=== PATIENT | male | born 1955 | race Caucasian/White ===

== ENCOUNTER 2018-08-12 15:37 | Outpatient (CLI) | payer BC ==
--- NOTE | 2018-08-12 16:48 | RAD ---
RADIOGRAPH CHEST 2 VIEWS: HISTORY: A 63-year-old male with cough and dyspnea with chest congestion. FINDINGS: The thoracic aorta is tortuous and ectatic. There is no evidence of air space density, pneumothorax, or pulmonary edema. There is no cardiomegaly or pleural effusion. IMPRESSION: 1) No acute cardiopulmonary findings. 2) Ectasia of thoracic aorta. jn [] POS: [facility]
== END 2018-08-12 15:38 | disposition home or self-care (01) ==
LOC: SCSRAD 15:37
PROVIDERS: ATTEND Family Medicine
DX: R05 Cough (principal); I77.810 Thoracic aortic ectasia
CPT/HCPCS: 71046

== ENCOUNTER 2018-08-27 07:15 | Outpatient (CLI) | payer BC, OTHER ==
--- NOTE | 2018-08-27 09:33 | CT ---
CT ANGIOGRAM THORAX WITH IV CONTRAST AND 3D RECONSTRUCTIONS: CT ANGIOGRAM ABDOMEN WITH IV CONTRAST AND 3D RECONSTRUCTIONS: 08/27/2018 HISTORY: Ectasia of the thoracic aorta. Abnormal chest x-ray. COMPARISON: 11/04/2011 FINDINGS: THORAX: The ascending thoracic aorta measures 4.5 cm in greatest transverse dimensions, which is bor derline aneurysmally dilated, but this is stable when compared to the study in 2011. The descending thoracic aorta is normal in caliber. There is no evidence of an aortic dissection. Vascular calcifi cations are seen at the origins of the great vessels. 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 No filling defects are seen within the pulmonary arteries to suggest a pulmonary embolus. A subpleural right middle lobe pulmonary nodule, measuring 7 mm, is seen anteriorly. A few subcentim eter, tiny, less than 4 mm pulmonary nodules are seen at the right lung base, which are also pleural- based. No additional pulmonary nodule is seen. There is no consolidation or pleural fluid seen. There is no evidence of lymphadenopathy. Vascular calcifications are seen in the coronary arteries. ABDOMEN: The liver demonstrates diminished attenuation, suggesting diffuse fatty infiltration. Area s of fatty sparing are seen adjacent to the gallbladder. A nonobstructing inferior pole left renal calculus is present, measuring 7 mm. A subcentimeter, too- [id number], hypodense lesion is seen in the mid portion of the left kidney. The spleen, pancreas, bilateral adrenal glands, and right kidney demonstrate a normal CT appearance f or the arterial phase of imaging. There are scattered atherosclerotic calcifications seen within the abdominal aorta and iliac arteries , which are otherwise normal in caliber, without evidence of an aortic dissection. There is eccentri c atherosclerotic plaque seen within the proximal superior mesenteric artery, resulting in mild narro wing proximally. The celiac and inferior mesenteric arteries, as well as the single bilateral renal arteries are patent. The appendix is visualized and is normal in caliber. No free fluid, fluid collection, or lymphadenopathy is seen in the abdomen. Degenerative changes are noted in the spine. IMPRESSION: 1. Right middle lobe pulmonary nodule, measuring 7 mm, with subcentimeter pleural-based nodular dens ities at the right lung base. There is a questionable pulmonary nodule at the lateral aspect of the right middle lobe, laterally, likely related to an additional pulmonary nodule. Follow-up CT scan th orax is recommended in six months. 2. Ectasia to mild aneurysmal dilatation of the ascending thoracic aorta, which is stable in size co mpared to the study in 2012. The descending thoracic aorta is normal in caliber. 3. Mild atherosclerotic vascular calcifications in the thoracic and abdominal aorta. 4. The abdominal aorta is normal in caliber without evidence of an aortic dissection. 5. Mild narrowing of the proximal superior mesenteric artery, related to eccentric atherosclerotic p laque. 6. Nonobstructing left renal calculus with subcentimeter, [id number], hypodense lesio n in the left kidney. 7. Fatty infiltration of the liver. POS: [facility]
[2018-08-27] MEDS ORDERED: ISOVUE-370 76%-LOCM 1 ML ONE (11:24)
== END 2018-08-27 07:16 | disposition home or self-care (01) ==
LOC: BICCT 07:15
PROVIDERS: ATTEND Family Medicine
DX: Z13.6 Encounter for screening for cardiovascular disorders (principal); I77.810 Thoracic aortic ectasia; R91.1 Solitary pulmonary nodule; I70.0 Atherosclerosis of aorta; K55.1 Chronic vascular disorders of intestine; N20.0 Calculus of kidney; K76.0 Fatty (change of) liver, not elsewhere classified
CPT/HCPCS: 71275; 74175; 82565; Q9966

== ENCOUNTER 2019-01-27 11:07 | Outpatient (CLI) | payer BC, OTHER ==
--- NOTE | 2019-01-27 11:21 | RAD ---
XR Toe(s) Lt Min 2 View HISTORY: Great toe pain suspicion of gout. COMPARISON: None. FINDINGS: There are arthritic changes of the great toe. There is chronic appearing changes of the fir st metatarsal phalangeal joint cortical margins are indistinct with subchondral cystic change involving the base of the proximal phalanx. These changes could be on the basis of gout. IMPRESSION: Arthritic changes of the great toe, the changes at the first metatarsophalangeal joint co uld be on the basis of gout.
== END 2019-01-27 11:08 | disposition home or self-care (01) ==
LOC: SCSRAD 11:07
PROVIDERS: ATTEND Family Medicine
DX: M10.072 Idiopathic gout, left ankle and foot (principal); M19.072 Primary osteoarthritis, left ankle and foot

== ENCOUNTER 2019-08-25 15:56 | Outpatient (CLI) | payer BC, OTHER ==
--- NOTE | 2019-08-25 16:23 | RAD ---
Exam: XR Knee Lt 3 View HISTORY: Acute pain left knee. Patient states chronic left knee pain but recently developed acute pain posteri or aspect left knee. COMPARISON: None FINDINGS: There are osteophytes involving the medial joint compartment and to a lesser extent involving patello femoral joint. There is suggestion of minimal narrowing of the medial joint compartment. No fracture or dislocation is seen involving the left knee. Vascular calcifications are seen posterior t o the knee. IMPRESSION: Osteoarthritis left knee without evidence of an acute osseous abnormality.
== END 2019-08-25 15:57 | disposition home or self-care (01) ==
LOC: SCSRAD 15:56
PROVIDERS: ATTEND Family Medicine
DX: M25.562 Pain in left knee (principal); M17.12 Unilateral primary osteoarthritis, left knee

== ENCOUNTER 2020-05-30 15:58 | Outpatient (CLI) | payer BC, OTHER ==
--- NOTE | 2020-05-30 16:46 | CT ---
CT ABDOMEN AND PELVIS WITHOUT IV CONTRAST: Indications: Hematuria. Right side pain. Comparison: 11-04-11 FINDINGS: Lung bases clear. Liver, spleen, and pancreas unremarkable. Stomach and duodenum unremarkable. Adrenal glands normal. Review of kidneys shows no evidence of hydronephrosis. Ureters are normal caliber and there is no carli dence of ureteral calculus or obstruction. Calcification in the lower pole left kidney may be arterial in nature. Similar calcification in the m id pole may be arterial. Also, small calcification in the midpole right kidney is probably arterial. Urinary bladder is contracted and not well evaluated. Small bowel loops normal caliber. Colon unremarkable. Appendix appears normal. Left colon is nondiste nded and not adequately evaluated. Aorta shows mild atherosclerotic calcification. No adenopathy or free fluid. Prostate upper normal size. Osseous structures unremarkable. There is a small calcification seen in what appears to be the cystic duct. There is no evidence of ga llbladder distention or ductal dilatation. A cystic duct stone is suspected. IMPRESSION: 1. Evidence of a small cystic duct calculus. 2. No evidence of urinary obstruction or ureteral calculus. Calcifications in the upper collecting st ructures of both kidneys are probably arterial in nature. POS: [facility]
== END 2020-05-30 15:59 | disposition home or self-care (01) ==
LOC: BICCT 15:58
PROVIDERS: ATTEND Family Medicine
DX: R31.0 Gross hematuria (principal); K80.20 Calculus of gallbladder without cholecystitis without obstruction; N28.89 Other specified disorders of kidney and ureter
CPT/HCPCS: 74176

== ENCOUNTER 2020-06-13 09:36 | Outpatient (CLI) | payer BC, OTHER ==
[2020-06-13] MEDS ORDERED: Iopamidol-370 76% 500 ML 1 ML ONE (10:09)
--- NOTE | 2020-06-13 12:00 | CT ---
CT CHEST WITH IV CONTRAST: Date: 06/13/2200 PROVIDED CLINICAL HISTORY: Pulmonary nodules. FINDINGS: Comparison made with study dated 08/27/2018. Aneurysmal dilatation of the ascending thoracic aorta measuring 4.5 cm is redemonstrated. Vascular ca lcification including coronary calcium is noted. There is an aberrant origin of the right subclavian origin demonstrating a retroesophageal course. There is no evidence for thoracic lymph node enlargement. The airway appears patent and of normal caliber. There is a stable 5.0 mm average axial dimension right middle lobe noncalcified pulmonary nodule. The lungs appear otherwise clear. Fatty infiltration of the liver is demonstrated. The osseous structures demonstrate no concerning lytic or blastic lesions. IMPRESSION: 1. Stable 5.0 mm average axial dimension pulmonary nodule. Given its stability [facility] [place], this is compatible with a benign nodule. 2. Vascular calcification including coronary calcium. 3. Fatty infiltration of the liver. POS: [facility]
== END 2020-06-13 09:37 | disposition home or self-care (01) ==
LOC: BICCT 09:36
PROVIDERS: ATTEND Family Medicine
DX: R91.1 Solitary pulmonary nodule (principal); I70.90 Unspecified atherosclerosis; K76.0 Fatty (change of) liver, not elsewhere classified
CPT/HCPCS: 71260; 82565; Q9967

== ENCOUNTER 2020-12-09 17:30 | Emergency (ER) | payer OTHER, BC ==
[2020-12-09] MEDS ORDERED: Boostrix 0.5 ML (Tdap) VIAL ONE (17:37)
[2020-12-09 18:01] LABS: #Basophils 0.1 thou/uL (0.0-0.2); #Eosinphils 0.1 thou/uL (0.0-0.7); #Monocytes 1.4 thou/uL (0.11-0.59); #Neutrophils 11.7 thou/uL (1.40-6.50); %Basophils 0.6 % (0.0-1.0); %Eosinophils 0.9 % (0.0-10.0); %Lymphocytes 12.9 % (21.0-51.0); %Monocytes 9.2 % (0.0-10.0); %Neutrophils 76.5 % (42.0-75.0); Hemoglobin 14.9 g/dL (14.0-18.0); Mean Corpuscular HGB CONC 32.6 g/dL (32.0-36.0); Mean Platelet Volume 8.8 fL (7.4-10.4); Platelet Count 191 thou/uL (130-400); Red Blood Cell (RBC) Count 4.65 mill/uL (4.70-6.10); White Blood Cell (WBC) Count 15.3 thou/uL (4.8-10.8)
[2020-12-09 18:38] LABS: ALT (SGPT) 67 U/L (8-55); AST (SGOT) 89 U/L (5-34); Albumin 3.7 g/dL (3.4-4.8); Alcohol 33 mg/dL (Less than 10); Alkaline Phosphatase 56 U/L (40-110); Anion Gap 15 mmol/L (10-20); BUN (Urea Nitrogen) 24 mg/dL (8.4-25.7); Bilirubin, Total 0.4 mg/dL (0.2-1.2); Calc. Creatinine Clearance 0 mL/min (70-130); Carbon Dioxide 20 mmol/L (23-31); Chloride 107 mmol/L (98-107); Globulin 3.5 g/dL (2.4-3.5); Glucose 133 mg/dL (80-115); Protein, Total 7.2 g/dL (5.8-8.1); Sodium 138 mmol/L (136-145)
== END 2020-12-09 20:58 | disposition home or self-care (01) ==
LOC: ERS 17:30
DX: S42.111A Displaced fracture of body of scapula, right shoulder, initial encounter for closed fracture (principal); S92.512A Displaced fracture of proximal phalanx of left lesser toe(s), initial encounter for closed fracture; S00.03XA Contusion of scalp, initial encounter; S00.83XA Contusion of other part of head, initial encounter; S20.312A Abrasion of left front wall of thorax, initial encounter; S30.811A Abrasion of abdominal wall, initial encounter; S80.812A Abrasion, left lower leg, initial encounter; S50.812A Abrasion of left forearm, initial encounter; I10 Essential (primary) hypertension; M10.9 Gout, unspecified; M19.90 Unspecified osteoarthritis, unspecified site; Z72.89 Other problems related to lifestyle; Z23 Encounter for immunization; V29.9XXA Motorcycle rider (driver) (passenger) injured in unspecified traffic accident, initial encounter; Y93.I9 Activity, other involving external motion
CPT/HCPCS: 70450; 71260; 72125; 74177; 80053; 80307; 85025; 90471; 90715; 96372; G0390; J0690

== ENCOUNTER 2021-03-28 08:42 | Outpatient (CLI) | payer BC, OTHER ==
[2021-03-28 10:11] LABS: Hemoglobin 15.2 g/dL (13.5-17.5); Mean Corpuscular HGB CONC 33.8 g/dL (32.0-36.0); Mean Corpuscular Hemoglobin 32.6 pg (27.0-33.0); Mean Corpuscular Volume 96.6 fl (81.2-95.1); Mean Platelet Volume 10.7 fl (7.4-10.4); Platelet Count 165 10x3/uL (150-450); RBC Distribution Width 12.6 % (11.5-14.5); Red Blood Cell (RBC) Count 4.66 10x6/uL (4.32-5.72); White Blood Cell (WBC) Count 5.4 10x3/uL (3.5-10.5)
[2021-03-28 10:36] LABS: PTT 26.1 sec (22.0-33.0); Prothrombin Time 10.7 sec (9.5-12.1)
[2021-03-28 10:37] LABS: Anion Gap 15 mmol/L (10-20); BUN (Urea Nitrogen) 23 mg/dL (8.4-25.7); Calc. Creatinine Clearance 0 mL/min (70-130); Calcium 10.1 mg/dL (7.8-10.44); Carbon Dioxide 22 mmol/L (23-31); Chloride 107 mmol/L (98-107); Glucose 104 mg/dL (80-115); Potassium 4.4 mmol/L (3.5-5.1); Sodium 140 mmol/L (136-145)
[2021-03-28 10:53] LABS: SARS-CoV-2 NAA Rapid Test Not Detected (NotDetected)
== END 2021-03-28 08:43 | disposition home or self-care (01) ==
LOC: LABBT 08:42
PROVIDERS: ATTEND Urology
DX: Z01.818 Encounter for other preprocedural examination (principal); N20.0 Calculus of kidney; Z20.822 Contact with and (suspected) exposure to COVID-19
CPT/HCPCS: 80048; 84550; 85027; 85610; 85730; 93005; 93010; G0103; U0002

== ENCOUNTER 2021-03-29 07:21 | Day surgery (SDC) | payer BC, OTHER ==
[2021-03-28 10:23] VITALS: BMI 34.7
[2021-03-29] MEDS ORDERED: Levofloxacin 500 mg/D5W 100 ml Premix Bag ONE (08:02)
[2021-03-29] MEDS ORDERED: Iothalamate Meglumine 60% 50 ML VIAL FS ONE (08:48)
[2021-03-29] MEDS ORDERED: Famotidine/PF 20 mg/2ml Vial ONE (08:56)
[2021-03-29] MEDS ORDERED: SUGAMMADEX SODIUM 200 MG/2 ML VIAL ONE (08:56)
[2021-03-29] MEDS ORDERED: Fentanyl 100 MCG/2 ML VIAL ONE (08:56)
[2021-03-29] MEDS ORDERED: Metoclopramide HCl 10 MG/2 ML VIAL ONE (09:05)
[2021-03-29] MEDS ORDERED: PROPOFOL 200 MG/20 ML VIAL ONE (09:05)
[2021-03-29] MEDS ORDERED: Rocuronium Bromide 10 MG/ML (10ML VIAL) ONE (09:05)
[2021-03-29] MEDS ORDERED: Albuterol Sulfate HFA (OR ONLY) ONE (09:05)
[2021-03-29] MEDS ORDERED: Ondansetron PF 4 MG/2 ML Vial ONE (09:05)
[2021-03-29] MEDS ORDERED: Lidocaine 1% PF 5 ML VIAL ONE (09:05)
[2021-03-29] MEDS ORDERED: PHENYLEPHRINE-NS 100 MCG/ML 10 ML SYRINGE ONE (09:05)
[2021-03-29] MEDS ORDERED: hydrALAZINE 20 MG/ML VIAL ONE (10:08)
[2021-03-29] MEDS ORDERED: Ketorolac Tromethamine 30 MG/ML VIAL ONE (10:09)
[2021-03-29] MEDS ORDERED: Ondansetron HCl/PF 4 MG/2 ML Vial IVP PRN (10:09)
[2021-03-29] MEDS ORDERED: Promethazine HCl 25 MG/ML VIAL IM PRN (10:09)
[2021-03-29] MEDS ORDERED: hydrALAZINE 20 MG/ML VIAL SLOW IVP PRN (10:09)
[2021-03-29] MEDS ORDERED: Promethazine HCl 25 MG/ML VIAL IVPB PRN (10:09)
[2021-03-29] MEDS ORDERED: Ketorolac Tromethamine 30 MG/ML VIAL IVP SCH (10:15)
[2021-03-29] MEDS ORDERED: Phenazopyridine HCl 100 MG TAB ONE (10:28)
[2021-03-29] MEDS ORDERED: Ondansetron ODT 4 MG TAB ONE (11:24)
== END 2021-03-29 12:42 | disposition home or self-care (01) ==
LOC: SDC 07:21
PROVIDERS: ATTEND Urology
PROC: 0T778DZ Dilation of Left Ureter with Intraluminal Device, Via Natural or Artificial Opening Endoscopic (ICD-10-PCS; principal; 2021-03-29)
PROC: 0TC48ZZ Extirpation of Matter from Left Kidney Pelvis, Via Natural or Artificial Opening Endoscopic (ICD-10-PCS; principal; 2021-03-29)
DX: N20.0 Calculus of kidney (principal); N21.0 Calculus in bladder; N40.1 Benign prostatic hyperplasia with lower urinary tract symptoms; N13.8 Other obstructive and reflux uropathy; R39.11 Hesitancy of micturition; R39.15 Urgency of urination; R39.12 Poor urinary stream; M10.072 Idiopathic gout, left ankle and foot; N28.1 Cyst of kidney, acquired; E66.09 Other obesity due to excess calories; Z68.34 Body mass index [BMI] 34.0-34.9, adult; Z87.891 Personal history of nicotine dependence; Z79.899 Other long term (current) drug therapy
CPT/HCPCS: 74018; 74420; C2617; J0360; J1885; J1956; J2405; J2704; J2765; J3010; Q0162; Q9961; S0028

== ENCOUNTER 2021-05-12 15:30 | Outpatient (CLI) | payer BC, OTHER ==
[2021-05-12 17:59] LABS: Hemoglobin 14.6 g/dL (13.5-17.5); Mean Corpuscular HGB CONC 34.4 g/dL (32.0-36.0); Mean Corpuscular Hemoglobin 32.7 pg (27.0-33.0); Mean Corpuscular Volume 95.3 fl (81.2-95.1); Mean Platelet Volume 10.8 fl (7.4-10.4); Platelet Count 164 10x3/uL (150-450); RBC Distribution Width 12.8 % (11.5-14.5); Red Blood Cell (RBC) Count 4.46 10x6/uL (4.32-5.72); White Blood Cell (WBC) Count 7.1 10x3/uL (3.5-10.5)
[2021-05-12 18:03] LABS: Bilirubin Neg (Negative); Blood, Urine Negative (Negative); Clarity Clear (Clear); Glucose, Urine (Dipstick) Normal (Negative); Ketone, Urine Negative (Negative); Leukocyte Negative (Negative); Nitrite Negative (Negative); Protein, Urine (Dipstick) Negative (Neg-Trace); Urobilinogen Normal mg/dL (Less than 2)
[2021-05-12 18:12] LABS: Bacteria/HPF Rare-Few HPF (None Seen); RBC/HPF None Seen HPF (0-3); Squamous Epithelial 0-3 HPF (0-3); WBC/HPF 0-3 HPF (0-3)
[2021-05-12 18:25] LABS: PTT 26.4 sec (22.0-33.0); Prothrombin Time 10.9 sec (9.5-12.1)
[2021-05-12 18:27] LABS: Anion Gap 13 mmol/L (10-20); BUN (Urea Nitrogen) 18 mg/dL (8.4-25.7); Calc. Creatinine Clearance 0 mL/min (70-130); Calcium 8.9 mg/dL (7.8-10.44); Carbon Dioxide 24 mmol/L (23-31); Chloride 102 mmol/L (98-107); Glucose 70 mg/dL (80-115); Potassium 3.6 mmol/L (3.5-5.1); Sodium 135 mmol/L (136-145)
[2021-05-13 00:37] LABS: SARS-CoV-2 PCR by NAA Not Detected (NotDetected)
== END 2021-05-12 15:31 | disposition home or self-care (01) ==
LOC: LABBT 15:30
PROVIDERS: ATTEND Urology
DX: Z01.818 Encounter for other preprocedural examination (principal); Z20.822 Contact with and (suspected) exposure to COVID-19
CPT/HCPCS: 80048; 81001; 85027; 85610; 85730; 87086; 93005; 93010; U0003; U0005

== ENCOUNTER 2021-05-17 05:56 | Day surgery (SDC) | payer BC, OTHER ==
[2021-05-16 12:49] VITALS: BMI 34.7
[2021-05-17] MEDS ORDERED: Levofloxacin 500 mg/D5W 100 ml Premix Bag ONE (06:06)
[2021-05-17] MEDS ORDERED: Fentanyl 100 MCG/2 ML VIAL ONE (08:35)
[2021-05-17] MEDS ORDERED: PROPOFOL 200 MG/20 ML VIAL ONE (08:57)
[2021-05-17] MEDS ORDERED: Phenazopyridine HCl 100 MG TAB ONE (09:42)
[2021-05-17] MEDS ORDERED: Oxybutynin 5 MG TAB ONE (09:42)
== END 2021-05-17 11:15 | disposition home or self-care (01) ==
LOC: SDC 05:56
PROVIDERS: ATTEND Urology
PROC: 0T7D8DZ Dilation of Urethra with Intraluminal Device, Via Natural or Artificial Opening Endoscopic (ICD-10-PCS; principal; 2021-05-17)
DX: N40.1 Benign prostatic hyperplasia with lower urinary tract symptoms (principal); R39.11 Hesitancy of micturition; R39.15 Urgency of urination; N32.89 Other specified disorders of bladder; N28.1 Cyst of kidney, acquired; M10.9 Gout, unspecified; E66.09 Other obesity due to excess calories; Z68.34 Body mass index [BMI] 34.0-34.9, adult; Z98.890 Other specified postprocedural states; Z79.899 Other long term (current) drug therapy; Z87.442 Personal history of urinary calculi; Z87.891 Personal history of nicotine dependence
CPT/HCPCS: J1956; J2704; J3010; L8699

== ENCOUNTER 2021-08-14 14:25 | Outpatient (CLI) | payer BC, OTHER | END 2021-08-14 14:26 | disposition home or self-care (01) | LOC: BICULT 14:25 | PROVIDERS: ATTEND Urology | DX: N20.0 Calculus of kidney (principal); N28.1 Cyst of kidney, acquired | CPT/HCPCS: 74018; 76770 ==

== ENCOUNTER 2024-04-07 13:08 | Emergency (ER) | payer OTHER, SELFPAY ==
[2024-04-07 14:08] LABS: #Basophils 0.05 10x3/uL (0.0-0.2); #Eosinphils Less than 0.03 10x3/uL (0.0-0.7); %Basophils 0.3 % (0.0-1.0); %Lymphocytes 14.1 % (21.0-51.0); %Monocytes 9.3 % (0.0-10.0); %Neutrophils 75.8 % (42.0-75.0); Hematocrit 49.7 % (42.0-52.0); Hemoglobin 16.6 g/dL (14.0-18.0); Mean Corpuscular HGB CONC 33.4 g/dL (32.0-36.0); Mean Corpuscular Hemoglobin 32.7 pg (27.0-31.0); Mean Platelet Volume 10.6 fL (7.4-10.4); Platelet Count 180 10x3/uL (130-400); RBC Distribution Width 12.7 % (11.5-14.5); Red Blood Cell (RBC) Count 5.07 mill/uL (4.70-6.10)
[2024-04-07 14:24] LABS: ALT (SGPT) 37 U/L (8-55); AST (SGOT) 110 U/L (5-34); Albumin 3.7 g/dL (3.4-4.8); Alkaline Phosphatase 60 U/L (40-110); Anion Gap 13 mmol/L (10-20); BUN (Urea Nitrogen) 18 mg/dL (8.4-25.7); Bilirubin, Total 0.9 mg/dL (0.2-1.2); Calc. Creatinine Clearance 0 mL/min (70-130); Calcium 9.4 mg/dL (7.8-10.44); Carbon Dioxide 26 mmol/L (23-31); Chloride 102 mmol/L (98-107); Estimated GFR 55; Globulin 4.2 g/dL (2.4-3.5); Glucose 168 mg/dL (80-115); Potassium 3.7 mmol/L (3.5-5.1); Protein, Total 7.9 g/dL (5.8-8.1); Sodium 137 mmol/L (136-145)
[2024-04-07 16:14] LABS: Bilirubin Negative (Negative); Blood, Urine 3+ (Negative); CAUTI Indications for Culture Pelvic or flank pain; Clarity Turbid (Clear); Glucose, Urine (Dipstick) 500 mg/dL (Negative); Ketone, Urine Negative (Negative); Leukocyte Negative Leu/uL (Negative); Nitrite Negative (Negative); Protein, Urine (Dipstick) 30 mg/dL (Neg-Trace); RBC/HPF Greater than 50 HPF (0-3); Specific Gravity, Urine 1.024 (1.002-1.036); Squamous Epithelial 0-3 HPF (0-3); Urobilinogen Normal mg/dL (Less than 2); Yeast-Budding 1+ HPF (None Seen); pH, Urine 5.5 (5.0-9.0)
[2024-04-07 16:15] LABS: Bacteria/HPF 1+ HPF (None Seen)
[2024-04-07 16:17] LABS: Urine Culture Reflex Yes Yes
[2024-04-07] MEDS ORDERED: Sodium Chloride 0.9% 100 ML ONE (16:45)
[2024-04-07] MEDS ORDERED: Ondansetron PF 4 MG/2 ML Vial ONE (16:45)
[2024-04-07] MEDS ORDERED: Ketorolac Tromethamine 30 MG (1 mL) VIAL ONE (16:45)
[2024-04-07] MEDS ORDERED: cefTRIAXone (ROCEPHIN) 2 GM VIAL ONE (16:45)
[2024-04-07 17:05] LABS: Lactic Acid 1.93 mmol/L (0.5-2.2)
[2024-04-07] MEDS ORDERED: Senokot S 8.6-50 MG TAB PO PRN (17:26)
[2024-04-07] MEDS ORDERED: hydrALAZINE 20 MG/ML VIAL SLOW IVP PRN ×2 (17:26→17:31)
[2024-04-07] MEDS ORDERED: Acetaminophen 325 MG TAB PO PRN (17:26)
[2024-04-07] MEDS ORDERED: Calcium Carbonate 500 MG ChewTAB PO PRN (17:26)
[2024-04-07] MEDS ORDERED: Sodium Chloride 0.9% 1,000 ML IV SCH (17:30)
[2024-04-07] MEDS ORDERED: Ketorolac Tromethamine 30 MG (1 mL) VIAL IVP PRN (17:31)
[2024-04-07] MEDS ORDERED: Amlodipine 5 MG TAB PO SCH (21:00)
[2024-04-07] MEDS ORDERED: Tamsulosin HCl 0.4 MG CAP PO SCH (21:00)
[2024-04-08] MEDS ORDERED: cefTRIAXone\\ROCEPHIN 2 GM in Sodium Chloride 0.9% 100 ML IVPB SCH (17:00)
== END 2024-04-07 18:16 | disposition home or self-care (01) ==
LOC: ERS 13:08
DX: N13.6 Pyonephrosis (principal); R11.2 Nausea with vomiting, unspecified; I10 Essential (primary) hypertension; Z55.6 Problems related to health literacy; Z87.891 Personal history of nicotine dependence
CPT/HCPCS: 36415; 74176; 80053; 81001; 83605; 85025; 87040; 87086; 96365; 96375; J0696; J1885; J2405

== ENCOUNTER 2024-04-13 07:49 | Outpatient (CLI) | payer OTHER ==
[2024-04-13 09:33] LABS: Anion Gap 13 mmol/L (10-20); BUN (Urea Nitrogen) 15 mg/dL (8.4-25.7); Calc. Creatinine Clearance 0 mL/min (70-130); Calcium 9.2 mg/dL (7.8-10.44); Carbon Dioxide 24 mmol/L (23-31); Chloride 106 mmol/L (98-107); Estimated GFR 73; Glucose 99 mg/dL (80-115); PTT 29.5 sec (22.9-36.1); Potassium 4.3 mmol/L (3.5-5.1); Prothrombin Time 12.7 sec (12.0-14.7); Sodium 139 mmol/L (136-145)
[2024-04-13 09:45] LABS: #Basophils 0.05 10x3/uL (0.0-0.2); %Basophils 1.1 % (0.0-1.0); %Eosinophils 5.2 % (0.0-10.0); %Lymphocytes 29.9 % (21.0-51.0); %Monocytes 15.9 % (0.0-10.0); Hematocrit 43.7 % (42.0-52.0); Hemoglobin 14.9 g/dL (14.0-18.0); Mean Corpuscular HGB CONC 34.1 g/dL (32.0-36.0); Mean Corpuscular Hemoglobin 33.2 pg (27.0-31.0); Mean Corpuscular Volume 97.3 fL (78.0-98.0); Mean Platelet Volume 10.8 fL (7.4-10.4); Platelet Count 184 10x3/uL (130-400); RBC Distribution Width 12.6 % (11.5-14.5); Red Blood Cell (RBC) Count 4.49 mill/uL (4.70-6.10)
== END 2024-04-13 07:50 | disposition home or self-care (01) ==
LOC: LABBT 07:49
PROVIDERS: ATTEND Urology
DX: Z01.818 Encounter for other preprocedural examination (principal); N20.0 Calculus of kidney; N40.1 Benign prostatic hyperplasia with lower urinary tract symptoms; R31.29 Other microscopic hematuria; R39.11 Hesitancy of micturition
CPT/HCPCS: 80048; 85025; 85610; 85730; 93005; 93010

== ENCOUNTER 2024-04-15 08:07 | Day surgery (SDC) | payer OTHER ==
[2024-04-13 08:26] VITALS: BMI 36.9
[2024-04-15] MEDS ORDERED: LevoFLOXacin D5W 500 mg (100 mL) BAG ONE (09:22)
[2024-04-15] MEDS ORDERED: fentaNYL PF 100 MCG/2 ML SYRINGE ONE (10:41)
[2024-04-15] MEDS ORDERED: PROPOFOL 20 ML ONE (10:41)
[2024-04-15] MEDS ORDERED: Midazolam HCl 2 mg/2 ml Vial ONE (10:42)
[2024-04-15] MEDS ORDERED: Iopamidol 30 ML ONE (11:07)
[2024-04-15] MEDS ORDERED: Lidocaine 1% PF 5 ML VIAL ONE (11:32)
[2024-04-15] MEDS ORDERED: Ondansetron PF 4 MG/2 ML Vial ONE (11:43)
[2024-04-15] MEDS ORDERED: Dexamethasone 20 MG/5 ML VIAL ONE (11:43)
[2024-04-15] MEDS ORDERED: Phenazopyridine HCl 100 MG TAB ONE (13:10)
[2024-04-15] MEDS ORDERED: Labetalol HCl 100 MG/20 ML VIAL ONE (13:58)
[2024-04-15] MEDS ORDERED: hydrALAZINE 20 MG/ML VIAL ONE (14:32)
== END 2024-04-15 17:00 | disposition home or self-care (01) ==
LOC: SDC 08:07
PROVIDERS: ATTEND Urology
PROC: 0T778DZ Dilation of Left Ureter with Intraluminal Device, Via Natural or Artificial Opening Endoscopic (ICD-10-PCS; principal; 2024-04-15)
PROC: 0TFB8ZZ Fragmentation in Bladder, Via Natural or Artificial Opening Endoscopic (ICD-10-PCS; principal; 2024-04-15)
PROC: 0TF48ZZ Fragmentation in Left Kidney Pelvis, Via Natural or Artificial Opening Endoscopic (ICD-10-PCS; principal; 2024-04-15)
DX: N13.2 Hydronephrosis with renal and ureteral calculous obstruction (principal); N21.0 Calculus in bladder; I10 Essential (primary) hypertension; N40.1 Benign prostatic hyperplasia with lower urinary tract symptoms; N28.1 Cyst of kidney, acquired; E66.09 Other obesity due to excess calories
CPT/HCPCS: 74018; 74420; 82365; 88300; J0360; J1100; J1956; J2250; J2405; J2704; Q9967

== ENCOUNTER 2024-07-31 17:04 | Inpatient (IN) | payer OTHER, MEDICARE ==
[~2024-07-31 17:04] MED LIST: Iopamidol-370 76% 500 ML MDV (1 ML CHARGE) ONE
[2024-07-31 18:00] LABS: #Basophils 0.06 10x3/uL (0.0-0.2); %Basophils 0.5 % (0.0-1.0); %Eosinophils 0.7 % (0.0-10.0); %Lymphocytes 9.6 % (21.0-51.0); %Monocytes 5.9 % (0.0-10.0); %Neutrophils 82.2 % (42.0-75.0); Hematocrit 42.1 % (42.0-52.0); Hemoglobin 14.3 g/dL (14.0-18.0); Mean Corpuscular Hemoglobin 32.4 pg (27.0-31.0); Mean Corpuscular Volume 95.2 fL (78.0-98.0); Mean Platelet Volume 10.6 fL (7.4-10.4); Platelet Count 132 10x3/uL (130-400); RBC Distribution Width 12.8 % (11.5-14.5); Red Blood Cell (RBC) Count 4.42 mill/uL (4.70-6.10)
[2024-07-31 18:16] LABS: ALT (SGPT) 40 U/L (8-55); AST (SGOT) 82 U/L (5-34); Albumin 3.5 g/dL (3.4-4.8); Alkaline Phosphatase 55 U/L (40-110); Anion Gap 12 mmol/L (10-20); BUN (Urea Nitrogen) 25 mg/dL (8.4-25.7); Bilirubin, Total 0.5 mg/dL (0.2-1.2); Calc. Creatinine Clearance 0 mL/min (70-130); Calcium 8.8 mg/dL (7.8-10.44); Carbon Dioxide 21 mmol/L (23-31); Chloride 108 mmol/L (98-107); Estimated GFR 81; Globulin 3.8 g/dL (2.4-3.5); Glucose 85 mg/dL (80-115); Lipase 27 U/L (8-78); Protein, Total 7.3 g/dL (5.8-8.1); Sodium 137 mmol/L (136-145)
[2024-07-31 18:20] LABS: INR-International Normal Ratio 1.1; PTT 29.6 sec (22.9-36.1); Prothrombin Time 13.7 sec (12.0-14.7)
[2024-07-31 18:21] LABS: Troponin I Less than 0.010 ng/mL (< 0.028)
[2024-07-31] MEDS ORDERED: Acetaminophen 325 MG TAB PO PRN (20:30)
[2024-07-31] MEDS ORDERED: Ondansetron PF 4 MG/2 ML Vial IVP PRN (20:30)
[2024-07-31] MEDS ORDERED: Ondansetron ODT 4 MG TAB SL PRN (20:30)
[2024-07-31] MEDS ORDERED: Morphine 4 MG/ML VIAL SLOW IVP PRN (21:50)
[2024-07-31] MEDS ORDERED: traMADol HCl 50 MG TAB PO PRN (21:50)
[2024-07-31] MEDS ORDERED: Dextrose 5% in Water 1,000 ML IV PRN (22:17)
[2024-07-31] MEDS ORDERED: hydrALAZINE 20 MG/ML VIAL SLOW IVP PRN (22:17)
[2024-07-31] MEDS ORDERED: Glucagon 1 MG/ML KIT IM PRN (22:17)
[2024-07-31] MEDS ORDERED: Dextrose 50% Abboject 50 ML SYRINGE SLOW IVP PRN (22:17)
[2024-07-31] MEDS: Lactated Ringer's 1,000 ML IV SCH (23:10)
[2024-07-31] MEDS: Ketorolac Tromethamine 30 MG (1 mL) VIAL IVP SCH (23:10)
[2024-07-31] MEDS: traMADol HCl 50 MG TAB PO SCH (23:11)
[2024-08-01 00:01] VITALS: BMI 36.2
[2024-08-01 05:23] LABS: #Basophils 0.04 10x3/uL (0.0-0.2); %Basophils 0.5 % (0.0-1.0); %Eosinophils 0.9 % (0.0-10.0); %Lymphocytes 18.4 % (21.0-51.0); %Monocytes 13.8 % (0.0-10.0); %Neutrophils 65.9 % (42.0-75.0); Hematocrit 36.2 % (42.0-52.0); Hemoglobin 12.2 g/dL (14.0-18.0); Mean Corpuscular HGB CONC 33.7 g/dL (32.0-36.0); Mean Corpuscular Hemoglobin 31.9 pg (27.0-31.0); Mean Corpuscular Volume 94.8 fL (78.0-98.0); Mean Platelet Volume 11.1 fL (7.4-10.4); Platelet Count 136 10x3/uL (130-400); RBC Distribution Width 13.2 % (11.5-14.5); Red Blood Cell (RBC) Count 3.82 mill/uL (4.70-6.10)
[2024-08-01 05:40] LABS: ALT (SGPT) 32 U/L (8-55); AST (SGOT) 69 U/L (5-34); Albumin 3.1 g/dL (3.4-4.8); Alkaline Phosphatase 47 U/L (40-110); Anion Gap 9 mmol/L (10-20); BUN (Urea Nitrogen) 26 mg/dL (8.4-25.7); Bilirubin, Total 0.6 mg/dL (0.2-1.2); Calc. Creatinine Clearance 113 mL/min (70-130); Calcium 8.4 mg/dL (7.8-10.44); Carbon Dioxide 24 mmol/L (23-31); Chloride 107 mmol/L (98-107); Estimated GFR 78; Globulin 3.3 g/dL (2.4-3.5); Glucose 100 mg/dL (80-115); Potassium 3.6 mmol/L (3.5-5.1); Protein, Total 6.4 g/dL (5.8-8.1); Sodium 136 mmol/L (136-145)
[2024-08-01 05:56] LABS: Band 3 % (5-11); Lymphocytes 10 % (21-51); Monocytes 10 % (0-10); Neutrophil 78 % (42-75); Platelet Adequacy Comment Platelets Normal; Poikilocytosis SLIGHT = 6-15 cells HPF (0-5); Polychromasia SLIGHT = 2-3 cells HPF (0-2)
[2024-08-01] MEDS: Ketorolac Tromethamine 30 MG (1 mL) VIAL IVP SCH (06:02)
[2024-08-01] MEDS ORDERED: Labetalol HCl 100 MG/20 ML VIAL SLOW IVP PRN (07:55)
[2024-08-01] MEDS: Cyanocobalamin (Vitamin B-12) 1,000 MCG TAB PO SCH (08:50)
[2024-08-01] MEDS: Tamsulosin HCl 0.4 MG CAP PO SCH (08:50)
[2024-08-01] MEDS: Allopurinol 300 MG TAB PO SCH (08:50)
[2024-08-01] MEDS: HYDROcodone/Acetaminophen 10/325 mg Tablet PO SCH (08:51)
[2024-08-01] MEDS: FLU (Fluad Triv) TS24-25 (65UP)/MF59C/PF 45 MCG/0.5 ML Syringe IM ONE (08:51)
[2024-08-01] MEDS: Acetaminophen 500 MG TAB PO SCH ×2 (08:51→12:12)
[2024-08-01] MEDS: Polyethylene Glycol 3350 17 GM Packet PO SCH (08:52)
[2024-08-01] MEDS ORDERED: Non-Formulary Item 1 EACH (Cyanocobalamin (Vitamin B-12) [Vitamin B-12] 500 MCG Tablet) PO SCH (09:00)
[2024-08-01] MEDS: traMADol HCl 50 MG TAB PO SCH (12:13)
[2024-08-01 15:31] LABS: Hematocrit 36.6 % (42.0-52.0); Hemoglobin 12.3 g/dL (14.0-18.0); Mean Corpuscular HGB CONC 33.6 g/dL (32.0-36.0); Mean Corpuscular Hemoglobin 32.1 pg (27.0-31.0); Mean Corpuscular Volume 95.6 fL (78.0-98.0); Mean Platelet Volume 10.7 fL (7.4-10.4); Platelet Count 118 10x3/uL (130-400); RBC Distribution Width 13.1 % (11.5-14.5); Red Blood Cell (RBC) Count 3.83 mill/uL (4.70-6.10)
[2024-08-01 15:57] LABS: #Basophils 0.04 10x3/uL (0.0-0.2); %Basophils 0.5 % (0.0-1.0); %Lymphocytes 15.9 % (21.0-51.0); %Monocytes 13.5 % (0.0-10.0); %Neutrophils 67.6 % (42.0-75.0); Macrocytosis SLIGHT = 6-15 cells HPF (0-5); Platelet Adequacy Comment Platelets Decreased
[2024-08-01] MEDS: Losartan 25 MG TAB PO SCH (20:03)
[2024-08-02 05:22] LABS: #Basophils 0.04 10x3/uL (0.0-0.2); %Basophils 0.5 % (0.0-1.0); %Eosinophils 3.4 % (0.0-10.0); %Monocytes 11.9 % (0.0-10.0); %Neutrophils 66.9 % (42.0-75.0); Hematocrit 36.3 % (42.0-52.0); Hemoglobin 12.5 g/dL (14.0-18.0); Mean Corpuscular HGB CONC 34.4 g/dL (32.0-36.0); Mean Corpuscular Hemoglobin 32.9 pg (27.0-31.0); Mean Corpuscular Volume 95.5 fL (78.0-98.0); Mean Platelet Volume 10.8 fL (7.4-10.4); Platelet Count 112 10x3/uL (130-400); RBC Distribution Width 13.1 % (11.5-14.5)
[2024-08-02 05:39] LABS: Anion Gap 11 mmol/L (10-20); BUN (Urea Nitrogen) 25 mg/dL (8.4-25.7); Calc. Creatinine Clearance 146 mL/min (70-130); Calcium 8.2 mg/dL (7.8-10.44); Carbon Dioxide 22 mmol/L (23-31); Chloride 105 mmol/L (98-107); Estimated GFR 96; Glucose 109 mg/dL (80-115); Potassium 3.8 mmol/L (3.5-5.1); Sodium 134 mmol/L (136-145)
[2024-08-02] MEDS: Hydrochlorothiazide 25 MG TAB PO SCH (09:08)
[2024-08-02] MEDS: Losartan 25 MG TAB PO SCH (09:09)
[2024-08-02] MEDS: Enoxaparin 40 MG (0.4 mL) SYRINGE SC SCH (20:53)
[2024-08-03] MEDS: traMADol HCl 50 MG TAB PO PRN (11:48)
[2024-08-03] MEDS: Ibuprofen 200 MG TAB PO PRN (11:49)
[2024-08-03] MEDS: Methocarbamol 500 MG TAB PO PRN (13:19)
[2024-08-05] MEDS: Ondansetron ODT 4 MG TAB PO PRN (02:58)
[2024-08-05] MEDS: diphenhydrAMINE 25 MG CAP PO PRN (11:52)
[2024-08-05] MEDS: Hydrocortisone 1% Cream 30 GM TUBE TOP PRN (15:20)
[2024-08-06 10:48] VITALS: BMI 36.2
[2024-08-06] MEDS: Calcium Carbonate 500 MG ChewTAB PO PRN (18:01)
[2024-08-07] MEDS ORDERED: Nystatin Powder 15 GM BOT TOP PRN (09:33)
[2024-08-07] MEDS: Melatonin 3 MG TAB PO PRN (21:58)
[2024-08-09] MEDS: Doxycycline 100 MG CAP PO SCH (11:25)
[2024-08-10] MEDS: Doxycycline 100 MG CAP PO SCH (09:28)
[2024-08-10 16:33] VITALS: BP 129/64; TEMP 98.2
== END 2024-08-10 18:30 | DRG 551 ==
LOC: ERS 17:04 → SURG A 20:20
PROVIDERS: ADMIT Specialist; ATTEND Specialist
DX: S32.139A Unspecified Zone III fracture of sacrum, initial encounter for closed fracture (principal); S32.401A Unspecified fracture of right acetabulum, initial encounter for closed fracture; S32.501A Unspecified fracture of right pubis, initial encounter for closed fracture; S32.502A Unspecified fracture of left pubis, initial encounter for closed fracture; S42.111A Displaced fracture of body of scapula, right shoulder, initial encounter for closed fracture; I71.21 Aneurysm of the ascending aorta, without rupture; I10 Essential (primary) hypertension; Z98.890 Other specified postprocedural states; Z79.899 Other long term (current) drug therapy; Z79.2 Long term (current) use of antibiotics; Z87.81 Personal history of (healed) traumatic fracture; V89.2XXA Person injured in unspecified motor-vehicle accident, traffic, initial encounter
CPT/HCPCS: 36415; 70450; 71045; 71260; 72125; 72170; 74177; 80048; 80053; 83605; 83690; 84484; 85025; 85610; 85730; G0390; J1650; J1885; J7120; Q0162; Q9967